=== PATIENT | male | born 1985 | race Caucasian/White ===

== ENCOUNTER 2024-12-25 09:20 | Emergency (ER) | payer OTHER, SELFPAY ==
--- NOTE | ~2024-12-25 | XR_ITS ---
EXAMINATION: XR abdomen/kub 1V DATE: 12/25/2024 09:55 INDICATION: Abdominal fullness. Chest tightness TECHNIQUE: A supine view of the abdomen on 2 radiographs was obtained. COMPARISON: None. FINDINGS: Lung bases are clear. Large amount of stool. Moderate amount of air in nondilated large and small bow el. No abnormal calcifications. Mild S-shaped curvature of the thoracolumbar spine. IMPRESSION: 1. Nonobstructive bowel gas pattern with a large amount of stool. If symptoms persist or worsen, cons ider a CT of the abdomen and pelvis for further assessment Reviewed, dictated and finalized at location A. IMPRESSION: 1. Nonobstructive bowel gas pattern with a large amount of stool. If symptoms p ersist or worsen, consider a CT of the abdomen and pelvis for further assessmen t
--- NOTE | ~2024-12-25 | XR_ITS ---
EXAMINATION: XR chest 2V DATE: 12/25/2024 09:55 INDICATION: Chest tightness TECHNIQUE: Frontal and lateral images of the chest were obtained COMPARISON: None FINDINGS: No focal pulmonary consolidation. No pneumothorax. No pleural effusion. The cardiomediastinal silhoue tte is normal. Visualized bones and soft tissues are unremarkable. IMPRESSION: 1. No acute pulmonary process identified. Reviewed, dictated and finalized at location A.
--- NOTE | 2024-12-25 09:21 | ED.URI ---
HPI - URI/Sore Throat General Chief Complaint: Unspecified Stated Complaint: congestion Time Seen by Provider: 12/25/24 09:21 Source: patient Mode of arrival: ambulatory Limitations: no limitations History of Present Illness HPI Narrative: Fernando is a 39-year-old male patient presenting to the clinic today with complaints of chest tightness/abdomen fullness. He reports 2 nights ago he felt as though he did not sleep well and his wrist watch told him that his heart rhythm was off. Had problems sleeping and could not control his thoughts and kept looking at his watch. Sunday he had a meal (ate sushi,pizza, beer) and he reports some fullness in the abdomen and chest. States abdomen feels full and chest feels tight like he can not eat or drink anything. He is a very healthy eater and does not normally eat junk food. Normally eats chicken, veggies, and rice. He has not tried any rfuq-rhp-fjgdrpy medications for his symptoms. Last bowel movement was yesterday and normal (solid/formed)for the patient. He is passing gas. No history of constipation. Denies any abdominal pain or chest pain. No GERD symptoms. Denies any shortness of breath. No nausea or vomiting. Related Data Allergies Allergy/AdvReac Type Severity Reaction Status Date / Time No Known Allergies Allergy Verified 12/25/24 09:33 Review of Systems Review of Systems: Pertinent positives per HPI. Patient denies any fever, chills, rash, headache, visual changes, dizziness, cough, shortness of breath, chest pain, palpitations, nausea, vomiting, diarrhea, constipation, abdominal pain, or any urinary issues. PMFSH Comments At the time of my signature, I reviewed and agree with the nursing past medical, surgical, social, and family history. There is no relevant family history pertinent to the patient complaint. Exam Narrative: General: Well-developed, well nourished, in no apparent distress Head: Normocephalic, atraumatic Eyes: Pupils equally round and reactive to light bilaterally, EOM intact, sclera and conjunctive clear, no discharge, lids normal Ears: TMs intact and clear, ear canals clear, no drainage, grossly hearing normal. Nose: Nares patent, no discharge, no inflammation, no sinus tenderness. Mouth: Oral pharynx without lesions or masses, good dentition, MMM. Neck: Supple, trachea midline, no enlargement of anterior or posterior cervical nodes, no thyroid masses or goiter palpable. Cardio: Regular rate and rhythm, s1 and s2 normal, no murmur appreciated. Resp: Clear to auscultation bilaterally, no rhonchi, rales, wheezing or rubs Abdomen: Soft, pliable, bowel sounds present in all quadrants, non-tender to palpation, no organomegly, no CVAT tenderness. Course Course Emergency Course: Portions of this record may have been created with voice recognition software. Level of Care: Express Care Visit Vital Signs Vital signs: Vital Signs Temperature 36.4 C L 12/25/24 09:30 Pulse Rate 81 12/25/24 09:30 Respiratory Rate 18 12/25/24 09:30 Blood Pressure 131/79 12/25/24 09:30 Pulse Oximetry 100 12/25/24 09:30 Oxygen Delivery Room Air 12/25/24 09:30 Temperature 36.4 C L 12/25/24 09:30 Pulse Rate 81 12/25/24 09:30 Respiratory Rate 18 12/25/24 09:30 Blood Pressure 131/79 12/25/24 09:30 Pulse Oximetry 100 12/25/24 09:30 Oxygen Delivery Room Air 12/25/24 09:30 Vital signs reviewed MDM - URI/Sore Throat MDM Narrative Medical decision making narrative: At the time of visit patient is resting comfortably on the exam table. Patient appears to be nontoxic. Complaints of chest tightness/abdomen fullness. He reports 2 nights ago he felt as though he did not sleep well and his wrist watch told him that his heart rhythm was off. Had problems sleeping and could not control his thoughts and kept looking at his watch. Sunday he had a meal (ate sushi,pizza, beer) and he reports some fullness in the abdomen and chest. States abdomen feels full and chest feels tight like he can not eat or drink anything. He is a very healthy eater and does not normally eat junk food. Normally eats chicken, veggies, and rice. He has not tried any ibff-ucs-fyyoeve medications for his symptoms. Last bowel movement was yesterday and normal (solid/formed)for the patient. He is passing gas. No history of constipation. Denies any abdominal pain or chest pain. No GERD symptoms. Denies any shortness of breath. No nausea or vomiting. Vital signs are stable. EKG, chest x-ray, and abdomen KUB x-ray ordered. EKG: EKG shows sinus bradycardia with sinus arrhythmia with heart rate of 56 beats per minute. No ST elevation, depression, or T-wave inversion Diagnostics: X-ray of the abdomen and chest were performed. X-ray of the chest is negative for any acute cardiopulmonary process. X-ray of the abdomen shows a large volume of stool in his colon-no sign of obstruction. Plan: I suspect patient has feeling of chest tightness/changed in heart rhythm-EKG shows sinus arrhythmia so this likely accounts for him not feeling as though his heart is beating regular at all times, abdomen x-ray shows large amount of stool in the colon which would explain his fullness sensation. Recommend using some MiraLax to see if this helps alleviate his symptoms. All test results were reviewed with the patient and he voiced understanding. Supportive measures were discussed with the patient and they voiced understanding discharge instructions and agrees to treatment plan. Return precautions reviewed Differential Diagnosis Differential diagnosis: Likely upper respiratory infection, otitis media, sinusitis, viral infection, bronchitis, influenza, pharyngitis and other (COVID) Imaging Data Radiologist's impression: ITS Impressions Chest X-Ray 12/25/24 09:57 IMPRESSION: 1. No acute pulmonary process identified. Abdomen X-Ray 12/25/24 10:04 IMPRESSION: 1. Nonobstructive bowel gas pattern with a large amount of stool. If symptoms persist or worsen, consider a CT of the abdomen and pelvis for further assessment ECG Data EKG #1: Attestation: I personally reviewed and interpreted this ECG as follows: ECG completion date: 12/25/24 Interpretation: EKG shows sinus bradycardia with sinus arrhythmia with heart rate of 56 beats per minute. No ST elevation, depression, or T-wave inversion. MA interval is 195 milliseconds, QRS durations 91 milliseconds, QT-QTC is 370-361 milliseconds, P-R-T axis is 27 55 59 Discharge Plan Discharge Clinical Impression: Sensation of chest tightness, Abdominal fullness Patient Disposition: Home Condition: Stable Instructions: Antibiotic Form, Chest Pain (ED), Constipation (ED), Gas and Bloating (ED) Additional Instructions: EKG is reassuring in the clinic today Chest x-rays negative for any acute cardiopulmonary process Abdomen KUB shows a large amount of stool in your colon without signs obstruction-normal bowel gas pattern Increase fluids and stay well hydrated Increase fiber in your diet Take MiraLax daily x7 days as directed Follow-up with your PCP in 3-5 days if symptoms persist Patient Language: Azerbaijani Prescriptions: New polyethylene glycol 3350 [Miralax] 17 gram/dose powder 17 g PO DAILY 7 Days Qty: 119 0RF Follow-up/Referrals: UNKNOWN,DOCTOR [Non-Staff] - Time of Disposition: 10:10 Quality NIHSS Nursing Documentation ED NIHSS nursing documentation: reviewed/agree
[2024-12-25 09:30] VITALS: BP 131/79; PULSE 81; RESP 18; TEMP 36.4; O2SAT 100
--- OUTSIDE RECORDS SUMMARY | 2024-12-25 09:34 | XMS_ITS | Clinical Summary ---
Author Organization [facility] Address [address] [place] [address] Care Team Providers Care [place]er Name Role Phone Unavailable Primary Care Provider Unavailabl e Source Comments [facility],non-owned Affiliates and Associated Physician Practices is amultiple site organization consisting of ambulatory clinics and hospital sitesin [place], [place], [place] and [place]. This disclosure is being madepursuant to the Care Everywhere program and may not contain all informatio navailable regarding this patient. 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[employer] Gender Identity Not on file Sexual Orientation Not on file Plan of Treatment Health Maintenance Due Date Last Done Comments LIPID TESTING 1984 HIV SCREENING 11/12/1999 HEPATITIS C SCREENING 11/07/2002 DTAP/TDAP/TD VACCINES (1 - Tdap) 11/12/2003 HEPATITIS B VACCINE (1 of 3 - 19+ 3-dose series) 11/12/2003 HPV VACCINE (1 - 3-dose SCDM series) 11/12/2011 COVID-19 VACCINE ( - 2023-2 5 season) 2024 DEPRESSION SCREENING 05/14/2024 INFLUENZA VACCINE (#1) 2025 03/09/2008 ZOSTER VACCINE (1 of 2) 2034 HIB VACCINE Aged Out No longer eligi ble based on patient's age to complete this topic MENINGOCOCCAL (Group B) VACC INE SHARED DECISION-MAKING Aged Out No longer eligibl e based on patient's age to complete this topic MENINGOCOCCAL GROUPS A/C/Y/W VACCINE Aged Out No longer eligible b ased on patient's age to complete this topic PNEUMOCOCCAL VACCINE Aged Out No long er eligible based on patient's age to complete this topic Insurance [employer]
--- NOTE | 2024-12-25 09:36 | ECG_ITS ---
Test Date: 2024-12-25 09:43:39 Measurements Intervals [place] Rate: 56 P: 27 OK: 195 QRS: 55 QRSD: 91 T: 59 QT: 370 QTc: 358 Interpretive Statements SINUS BRADYCARDIA WITH SINUS ARRHYTHMIA BORDERLINE ECG No previous ECG available for comparison Electronically Signed On 12-25-2024 12:30:55 CDT by Vishal Mejia D.O.
== END 2024-12-25 10:14 | disposition home or self-care (01) ==
PROVIDERS: Emergency Provider Nurse Practitioner Family
DX: R07.89 Other chest pain (principal); R14.0 Abdominal distension (gaseous)
CPT/HCPCS: 71046; 74018; 93005; 99203; G0463